=== PATIENT | male | born 1970 | race Caucasian/White ===

== ENCOUNTER 2017-04-03 20:54 | Emergency (ER) | payer BC ==
[~2017-04-03] VITALS: Ht 175.3 cm; Wt 128.0 kg
[2017-04-03 21:04] VITALS: BP 142/72; PULSE 115; RESP 16; TEMP 99.2; O2SAT 96
[2017-04-03] MEDS ORDERED: METF500T PO (21:20)
[2017-04-03 21:22] VITALS: PULSE 108; RESP 18; O2SAT 98
--- NOTE | 2017-04-03 21:24 | PD ---
HPI Chief Complaint: Wound/Suture/Staple Re-Check Time Seen by Provider: 21:15 Travel History International Travel<30 days: No Contact w/Intl Traveler<30days: No Traveled to known affect area: No History of Present Illness HPI Patient is a 46-year-old male who presents to emergency room for wound dressing changes. Patient reports that he suffered a left leg infection and was recently hospitalized for this. Reports that he is currently getting dressings placed to 3 areas his left lower extremity. Patient reports that he is supposed to have home nurse come and change his dressing every 3 days. Reports that they canceled on him today and he needs his dressings changes. Patient with no fevers or chills, denies any complaints at this time. Patient here for dressing changes. PFSH Past Medical History Diabetes: Yes Social History Alcohol Use: No Tobacco Use: No Substance Use: No Allergies-Medications (Allergen,Severity, Reaction): Coded Allergies: No Known Allergies (Unverified , 04/03/17) Reported Meds & Prescriptions Reported Meds & Active Scripts Active Reported Metformin (Metformin HCl) 500 Mg Tab 500 Mg PO BIDPC With meals Review of Systems General / Constitutional: No: Fever, Chills Eyes: No: Visual changes HENT: No: Headaches Cardiovascular: No: Chest Pain or Discomfort Respiratory: No: Shortness of Breath Gastrointestinal: No: Abdominal Pain Genitourinary: No: Dysuria Musculoskeletal: No: Pain Skin: No Rash, No Itching, No Dryness, No Lumps, No Hives Neurologic: No: Weakness Psychiatric: No: Depression Endocrine: No: Polydipsia Hematologic/Lymphatic: No: Easy Bruising Physical Exam Narrative GENERAL: NAD SKIN: Focused skin assessment warm/dry. Patient with 3 healing wound to LLE: left thigh x 1, left tib/fib x 2, there is no drainage or cellulitis from wound , wound are healing with no signs of infection HEAD: Atraumatic. Normocephalic. CARDIOVASCULAR: Regular rate and rhythm. No murmur appreciated. RESPIRATORY: No accessory muscle use. Clear to auscultation. Breath sounds equal bilaterally. GASTROINTESTINAL: Abdomen soft, non-tender, nondistended. Hepatic and splenic margins not palpable. MUSCULOSKELETAL: No obvious deformities. No clubbing. No cyanosis. No edema. NEUROLOGICAL: Awake and alert. No obvious cranial nerve deficits. Motor grossly within normal limits. Normal speech. PSYCHIATRIC: Appropriate mood and affect; insight and judgment normal. Data Data Last Documented VS Vital Signs Date Time Temp Pulse Resp B/P (MAP) Pulse Ox O2 Delivery O2 Flow Rate FiO2 04/03/17 21:22 112 04/03/17 21:22 18 98 Room Air 04/03/17 21:04 99.2 142/72 (95) [facility] Medical Decision Making Medical Screen Exam Complete: Yes Emergency Medical Condition: Yes Medical Record Reviewed: Yes Interpretation(s) Vital Signs Date Time Temp Pulse Resp B/P (MAP) Pulse Ox O2 Delivery O2 Flow Rate FiO2 04/03/17 21:04 99.2 115 16 142/72 (95) 96 Differential Diagnosis Differential includes wound infection/dressing changes Narrative Course Patient is a 46-year-old male who presents to emergency room for evaluation of wound dressing changes. Patient reports that he was recently hospitalized for wound infections, reports that he was supposed to have home health care change his dressings, reports that they canceled him today. Patient here for dressing changes. Patient with no fevers or chills, no drainage from wound site. Patient with no signs of infection. Plan to change patient's wounds - he will follow up with his pcp and will return to ER as needed Diagnosis Primary Impression: Change of dressing Patient Instructions: General Instructions Additional Instructions: Please return to ER as needed Please follow up with your primary care doctor Return to the ER immediately if you develop any signs of infection Disposition: 01 DISCHARGE HOME Condition: Stable Nisreen Zaidi DO Apr 03, 2017 21:24
[2017-04-03 22:05] VITALS: BP 168/89
== END 2017-04-03 22:07 | disposition home or self-care (01) ==
LOC: EDBD 20:54 → PHED 20:54
DX: Z48.02 Encounter for removal of sutures (principal)
CPT/HCPCS: 99281